=== PATIENT | female | born 1985 | race Caucasian/White ===

== ENCOUNTER 2018-01-15 11:04 | Emergency (ER) | payer OTHER ==
[~2018-01-15] VITALS: Ht 154.9 cm; Wt 108.0 kg
[2018-01-15 11:48] LABS: CHLORIDE 100 mEq/L (99-109); POTASSIUM 4.2 mEq/L (3.7-5.4); SODIUM 139 mEq/L (136-147)
[2018-01-15 11:50] LABS: GLUCOSE 83 mg/dL (70-99)
[2018-01-15 11:53] LABS: HEMATOCRIT 29.7 % (36.0-46.0); MCH 21.2 PG (29.0-34.0); MCHC 30.3 G/DL (30.0-36.0); MCV 69.9 FL (83-99); PLATELET COUNT 97 K/uL (156-360); RBC DIS.WIDTH-CV 16.6 % (11.8-14.6); RBC DIS.WIDTH-SD 41.9 % (39-53); RED BLOOD COUNT 4.25 M/uL (3.80-5.20); WHITE BLOOD COUNT 6.5 K/uL (4.1-10.2)
[2018-01-15 11:54] LABS: CREATININE 0.8 mg/dL (0.6-1.3); GFR ESTIMATE (CALCULATED) > 59 mL/min/
[2018-01-15 11:55] LABS: UREA NITROGEN (BUN) 12 mg/dL (9-23)
[2018-01-15 12:00] LABS: TROP-I INTERPRETATION NEGATIVE; TROPONIN-I < 0.01 ng/mL (0.0-0.30)
[2018-01-15 12:04] LABS: QUANTITATIVE HCG < 4.0 MIU/ML
[2018-01-15 14:56] LABS: TROP-I INTERPRETATION NEGATIVE; TROPONIN-I < 0.01 ng/mL (0.0-0.30)
[2018-01-15 15:24] VITALS: BP 104/76
== END 2018-01-15 15:25 | disposition home or self-care (01) ==
LOC: EME 11:04
PROVIDERS: Physician Assistant Medical
DX: R07.89 Other chest pain (principal); I45.10 Unspecified right bundle-branch block; R94.31 Abnormal electrocardiogram [ECG] [EKG]; I10 Essential (primary) hypertension; E11.9 Type 2 diabetes mellitus without complications; Z79.4 Long term (current) use of insulin
CPT/HCPCS: 71046; 80048; 84484; 84702; 85027; 93005; 99281; 99284